=== PATIENT | female | born 1990 | race African-American/Black ===

== ENCOUNTER 2018-07-14 08:37 | Emergency (ER) | payer SELFPAY ==
[~2018-07-14] VITALS: Ht 160 cm; Wt 68.0 kg
[~2018-07-14 08:37] MED LIST: ACET500C PO; PREN-96 PO
[2018-07-14 10:32] LABS: Urine Bacteria FEW /hpf (None Seen); Urine Blood Negative /uL (Negative); Urine Specific Gravity 1.017 (1.001-1.035); Urine WBC 3 /hpf (0 - 5)
[2018-07-14 11:56] LABS: Albumin 3.8 g/dL (3.4-5.0); Anion Gap 9 (5-15); BUN/Creatinine Ratio 8.1; Blood Urea Nitrogen 5 mg/dL (7-18); Calcium 8.5 mg/dL (8.5-10.1); Carbon Dioxide 19 mmol/L (21-32); Chloride 110 mmol/L (98-107); GFR African American 150 mL/min; GFR Non-African American 124 mL/min; Glucose 90 mg/dL (74-106); Sodium 138 mmol/L (136-145)
[2018-07-14 12:00] LABS: Alanine Aminotransferase 18 U/L (13-56); Alkaline Phosphatase 84 U/L (45-117); Aspartate Aminotransferase 20 U/L (15-37); Bilirubin, Total 0.4 mg/dL (0.2-1.0)
[2018-07-14 12:40] VITALS: BP 110/72
== END 2018-07-14 12:51 | disposition home or self-care (01) ==
LOC: ER 08:40
DX: N39.0 Urinary tract infection, site not specified (principal)
CPT/HCPCS: 36415; 70450; 80053; 81001; 81025; 82962

== ENCOUNTER → 2025-03-24 | Outpatient (CLI) | payer BC ==
[2025-03-24 15:17] LABS: Hematocrit 40.0 % (36.0-46.0); Hemoglobin 13.8 g/dL (12.2-16.2); Mean Corpuscular Hemoglobin 31.8 pg (28.0-32.0); Mean Corpuscular Volume 92.3 fL (80.0-100.0); Nucleated Red Blood Cells % 0.0 %
[2025-03-24 15:34] LABS: Alanine Aminotransferase 14 U/L (7-40); Alkaline Phosphatase 82 U/L (46-116); Anion Gap 11 (5-15); BUN/Creatinine Ratio 7.4 (10.0-20.0); Calcium 9.4 mg/dL (8.7-10.4); Carbon Dioxide 26 mmol/L (20-31); Chloride 104 mmol/L (98-107); Glucose 88 mg/dL (74-106); Potassium 3.6 mmol/L (3.5-5.1); Sodium 141 mmol/L (136-145); Total Protein 8.1 g/dL (5.7-8.2); Triglycerides 60 mg/dL (< 150)
[2025-03-24 15:35] LABS: Bilirubin, Total 0.8 mg/dL (0.2-1.0); Cholesterol 136 mg/dL (< 200); HDL Cholesterol 53 mg/dL (40-59)
[2025-03-24 15:40] LABS: Iron 103.0 ug/dL (50-170)
[2025-03-24 15:41] LABS: Albumin 4.9 g/dL (3.2-4.8); Blood Urea Nitrogen 5 mg/dL (9-23)
[2025-03-24 15:43] LABS: Total Iron Binding Capacity 364.0 ug/dL (250-425)
[2025-03-26 12:00] LABS: Hepatitis A Total Antibody Positive (Negative); Hepatitis B Surface Antigen Negative (Negative); Hepatitis C Antibody Negative (Negative)
== END | disposition home or self-care (01) ==
LOC: LAB 14:39
PROVIDERS: ATTEND Licensed Practical Nurse
DX: E55.9 Vitamin D deficiency, unspecified (principal); R35.0 Frequency of micturition; Z13.29 Encounter for screening for other suspected endocrine disorder; Z00.01 Encounter for general adult medical examination with abnormal findings; Z13.1 Encounter for screening for diabetes mellitus
CPT/HCPCS: 80053; 80061; 82043; 82728; 83036; 83540; 83550; 84443

== ENCOUNTER 2025-05-04 09:02 | Outpatient (CLI) | payer BC ==
[2025-05-04 10:26] LABS: Hematocrit 39.8 % (36.0-46.0); Hemoglobin 13.9 g/dL (12.2-16.2); Mean Corpuscular Hemoglobin 31.9 pg (28.0-32.0); Mean Corpuscular Volume 91.6 fL (80.0-100.0); Nucleated Red Blood Cells % 0.1 %
[2025-05-04 10:40] LABS: Alanine Aminotransferase 15 U/L (7-40); Alkaline Phosphatase 79 U/L (46-116); Anion Gap 8 (5-15); Calcium 9.4 mg/dL (8.7-10.4); Carbon Dioxide 25 mmol/L (20-31); Glucose 93 mg/dL (74-106); Potassium 3.9 mmol/L (3.5-5.1); Sodium 141 mmol/L (136-145); Total Protein 7.6 g/dL (5.7-8.2)
[2025-05-04 10:41] LABS: Bilirubin, Total 1.0 mg/dL (0.2-1.0)
[2025-05-04 10:42] LABS: Albumin 4.8 g/dL (3.2-4.8); BUN/Creatinine Ratio 7.2 (10.0-20.0); Blood Urea Nitrogen < 5 mg/dL (9-23); Chloride 108 mmol/L (98-107)
[2025-05-04 10:45] LABS: INR 1.04 (0.9-1.15); Partial Thromboplastin Time 32.9 SEC (24.5-34.5); Prothrombin Time 11.0 sec (9.3-11.8)
== END 2025-05-04 17:00 | disposition home or self-care (01) ==
LOC: LAB 09:02
PROVIDERS: ATTEND Licensed Practical Nurse
DX: Z01.812 Encounter for preprocedural laboratory examination (principal)
CPT/HCPCS: 36415; 80053; 82306; 84702; 85025; 85610; 85730